=== PATIENT | male | born 1945 | race Caucasian/White ===

== ENCOUNTER 2022-08-03 21:31 | Inpatient (IN) | payer MEDICARE, OTHER ==
[~2022-08-03] VITALS: Ht 182.9 cm; Wt 115.7 kg
[~2022-08-03 21:31] MED LIST: ASPI-543 PO; ATEN50TA PO; CLOP75TA28 PO; GLIP5TAB12 PO; HYDR12.56 PO; LEVO150T10 PO; LISI20TA28 PO; METF-370 PO; SIMV-13 PO
[2022-08-03] MEDS ORDERED: SODIUM CHLORIDE 0.9% 500 ML IV ONE (22:00)
[2022-08-03] MEDS ORDERED: NOREPINEPHRINE 8 MG/250ML KIT 250 ML IV ONE (22:18)
[2022-08-03] MEDS: NOREPINEPHRINE 8 MG/250ML KIT 250 ML IV SCH (22:30)
[2022-08-03] MEDS ORDERED: PIPERACILLIN-TAZO 4.5GM 100 ML IV ONE (23:00)
[2022-08-03] MEDS ORDERED: VANCOMYCIN PER PHARMACY 0 MG IV SCH (23:00)
[2022-08-03 23:04] LABS: Basophils # (auto) 0 10 ^3/uL (0-0.2); Basophils % (auto) 0.3 % (0.0-2.0); Eosinophils # (auto) 0 10 ^3/uL (0-0.8); Eosinophils % (auto) 0.1 % (0.0-7.0); Hematocrit 38.4 % (41.0-53.0); Hemoglobin 12.7 g/dL (13.5-17.5); Lymphocytes % (auto) 7.9 % (10.0-50.0); Mean Corpuscular Hemoglobin 29.7 pg (28.0-32.0); Mean Corpuscular Volume 90.1 fL (80.0-100.0); Monocytes # (auto) 1.7 10 ^3/uL (0-1.3); Monocytes % (auto) 12.8 % (0.0-12.0); Neutrophils # (auto) 10.4 10 ^3/uL (1.6-8.6); Neutrophils % (auto) 78.9 % (37.0-80.0); Nucleated Red Blood Cells % 0.1 %; Red Blood Cells 4.27 10^6/uL (4.5-5.90); Red Cell Distribution Width 16.4 % (11.8-14.3); White Blood Cell 13.2 10^3/uL (4.4-10.8)
[2022-08-03] MEDS ORDERED: VANCOMYCIN 1GM/250ML 250 ML IV ONE (23:15)
[2022-08-03] MEDS ORDERED: DESMOPRESSIN INJECTION 20 MCG in SODIUM CHL 0.9% 50 ML IV ONE (23:15)
[2022-08-03] MEDS ORDERED: PANTOPRAZOLE 40 MG/10 ML VIAL INJ IV ONE (23:15)
[2022-08-03] MEDS ORDERED: SODIUM CHLORIDE 0.9% 1,000 ML IV ONE (23:15)
[2022-08-03 23:16] LABS: INR 1.15 (0.9-1.15)
[2022-08-03 23:25] LABS: Albumin 2.6 g/dL (3.4-5.0); BUN/Creatinine Ratio 14.1 (10.0-20.0); Calcium 8.5 mg/dL (8.5-10.1); Potassium 4.1 mmol/L (3.5-5.1)
[2022-08-03 23:28] LABS: Bilirubin, Total 1.1 mg/dL (0.2-1.0)
[2022-08-04] MEDS ORDERED: IOHEXOL 350 MG/ML 100ML IJ ONE (00:42)
[2022-08-04] MEDS ORDERED: ONDANSETRON HCL 4 MG/2 ML VIAL IV PRN (01:30)
[2022-08-04] MEDS ORDERED: ALBUTEROL SULF 2.5 MG/0.5ML(0.5%) NEB SOLN NEB PRN (01:30)
[2022-08-04] MEDS ORDERED: MORPHINE SULFATE INJ 2 MG/ml SYRG IV PRN ×2 (01:30)
[2022-08-04] MEDS ORDERED: ACETAMINOPHEN 325 MG TAB PO PRN (01:30)
[2022-08-04] MEDS ORDERED: NITROGLYCERIN 0.4 MG SL TAB SL PRN (01:30)
[2022-08-04] MEDS ORDERED: HYDROcodone-ACET 5/325MG TAB PO PRN (01:30)
[2022-08-04 01:33] LABS: Urine Bacteria NONE SEEN /hpf (None Seen); Urine Blood 1+ /uL (Negative); Urine Hyaline Cast FEW /lpf (0 - 2); Urine Mucus FEW (None Seen); Urine Specific Gravity 1.034 (1.001-1.035); Urine WBC 1 /hpf (0 - 3)
[2022-08-04 01:43] VITALS: BP 120/56
[2022-08-04] MEDS ORDERED: VANCOMYCIN 1GM/250ML 250 ML IV ONE ×2 (01:45→21:00)
[2022-08-04] MEDS ORDERED: DEXTROSE (50%) 50ML SYRG IV PRN (01:45)
[2022-08-04] MEDS ORDERED: PANTOPRAZOLE 40 MG/10 ML VIAL INJ IV ONE (02:00)
[2022-08-04] MEDS: DOPamine 1600MCG/ML D5W 250 ML IV SCH ×2 (02:01→23:55)
[2022-08-04] MEDS: SODIUM BICARBONATE 50ML VIAL 50 ML in SOD CHL 0.45% 1,000 ML IV SCH ×2 (02:15→22:56)
[2022-08-04] MEDS ORDERED: SODIUM BICARBONATE 8.4 % INJ 50ML VIAL IV ONE (02:16)
[2022-08-04 05:49] LABS: Basophils # (auto) 0 10 ^3/uL (0-0.2); Basophils % (auto) 0.2 % (0.0-2.0); Eosinophils # (auto) 0 10 ^3/uL (0-0.8); Eosinophils % (auto) 0.1 % (0.0-7.0); Hematocrit 44.2 % (41.0-53.0); Hemoglobin 14.6 g/dL (13.5-17.5); Lymphocytes # (auto) 0.9 10 ^3/uL (0.4-5.4); Lymphocytes % (auto) 6.4 % (10.0-50.0); Mean Corpuscular Hemoglobin 29.6 pg (28.0-32.0); Mean Corpuscular Hgb Conc. 33.1 g/dL (32.0-36.0); Mean Corpuscular Volume 89.4 fL (80.0-100.0); Monocytes # (auto) 1.8 10 ^3/uL (0-1.3); Monocytes % (auto) 12.8 % (0.0-12.0); Neutrophils # (auto) 11.4 10 ^3/uL (1.6-8.6); Neutrophils % (auto) 80.5 % (37.0-80.0); Nucleated Red Blood Cells % 0.3 %; Red Blood Cells 4.95 10^6/uL (4.5-5.90); Red Cell Distribution Width 15.8 % (11.8-14.3); White Blood Cell 14.2 10^3/uL (4.4-10.8)
[2022-08-04] MEDS: ACCU-CHEK COMFORT CURVE STRIP VI SCH ×3 (06:00→18:17)
[2022-08-04 06:03] LABS: INR 1.08 (0.9-1.15); Partial Thromboplastin Time 30.6 sec (24.6-33.4)
[2022-08-04] MEDS: InsuLIN REG 1unit/0.01ml Soln (100units/ml) SC SCH ×3 (06:05→18:19)
[2022-08-04 06:06] LABS: Albumin 3.1 g/dL (3.4-5.0); Calcium 8.7 mg/dL (8.5-10.1)
[2022-08-04 06:13] LABS: BUN/Creatinine Ratio 16.6 (10.0-20.0); Bilirubin, Total 1.5 mg/dL (0.2-1.0); Phosphorus 3.2 mg/dL (2.5-4.90); Total Protein 6.8 g/dL (6.4-8.2)
[2022-08-04] MEDS: PANTOPRAZOLE 40 MG/10 ML VIAL INJ IV SCH ×2 (10:14→22:11)
[2022-08-04] MEDS ORDERED: BENZOCAINE (DENTAL) 20 % SPRAY 60ML MT ONE (13:00)
[2022-08-04 13:31] LABS: Protein, Urine 81.5 mg/dL (0.0-11.9)
[2022-08-04 18:11] LABS: Hematocrit 40.9 % (41.0-53.0); Hemoglobin 13.6 g/dL (13.5-17.5); Mean Corpuscular Hemoglobin 29.4 pg (28.0-32.0); Mean Corpuscular Hgb Conc. 33.3 g/dL (32.0-36.0); Mean Corpuscular Volume 88.4 fL (80.0-100.0); Red Blood Cells 4.62 10^6/uL (4.5-5.90); Red Cell Distribution Width 15.7 % (11.8-14.3); White Blood Cell 11.3 10^3/uL (4.4-10.8)
[2022-08-04 18:30] LABS: Albumin 2.8 g/dL (3.4-5.0); Calcium 8.4 mg/dL (8.5-10.1)
[2022-08-04 18:31] LABS: Basophils % (manual) 0 (0.0-2.0); Blast Cells 0; Metamyelocytes % 0; Myelocytes % 0; Promyelocytes % 0; Reactive Lymphocytes 0
[2022-08-04 18:33] LABS: BUN/Creatinine Ratio 21.1 (10.0-20.0); Bilirubin, Total 1.1 mg/dL (0.2-1.0); Total Protein 6.5 g/dL (6.4-8.2)
[2022-08-04 18:56] LABS: Band Neutrophils % (manual) 13; Eosinophils % (manual) 1 (0-7); Lymphocytes % (manual) 10 (10.0-50.0); Monocytes % (manual) 10 (0-12)
[2022-08-04] MEDS: NOREPINEPHRINE 8 MG/250ML KIT 250 ML IV SCH (22:30)
[2022-08-05] MEDS: InsuLIN REG 1unit/0.01ml Soln (100units/ml) SC SCH ×5 (00:18→23:09)
[2022-08-05] MEDS: ACCU-CHEK COMFORT CURVE STRIP VI SCH ×5 (00:18→23:09)
[2022-08-05] MEDS: PANTOPRAZOLE 40 MG/10 ML VIAL INJ IV SCH ×2 (10:27→21:58)
[2022-08-05 11:14] LABS: Calcium 8.8 mg/dL (8.5-10.1); Potassium 3.7 mmol/L (3.5-5.1)
[2022-08-05 11:16] LABS: BUN/Creatinine Ratio 24.8 (10.0-20.0)
[2022-08-05] MEDS ORDERED: CEFEPIME 1GM/ 50ML 50 ML IV ONE (12:00)
[2022-08-05] MEDS: VANCOMYCIN 1GM/250ML 250 ML IV SCH (12:29)
[2022-08-05 17:45] VITALS: BP 96/60
[2022-08-05] MEDS: SODIUM BICARBONATE 50ML VIAL 50 ML in SOD CHL 0.45% 1,000 ML IV SCH ×2 (19:30→22:49)
[2022-08-05 22:00] VITALS: BP 106/56
[2022-08-05] MEDS: CEFEPIME 1GM/ 50ML 50 ML IV SCH (22:49)
[2022-08-06 05:00] VITALS: BP 110/63
[2022-08-06] MEDS: InsuLIN REG 1unit/0.01ml Soln (100units/ml) SC SCH ×3 (05:46→18:28)
[2022-08-06] MEDS: ACCU-CHEK COMFORT CURVE STRIP VI SCH ×3 (05:46→18:27)
[2022-08-06] MEDS ORDERED: INSU1INJ13 SC (05:54)
[2022-08-06] MEDS ORDERED: METO25TA93 PO (05:54)
[2022-08-06 06:29] LABS: Basophils # (auto) 0 10 ^3/uL (0-0.2); Basophils % (auto) 0.5 % (0.0-2.0); Eosinophils # (auto) 0.1 10 ^3/uL (0-0.8); Eosinophils % (auto) 1.7 % (0.0-7.0); Hematocrit 37.2 % (41.0-53.0); Hemoglobin 12.5 g/dL (13.5-17.5); Lymphocytes % (auto) 13.9 % (10.0-50.0); Mean Corpuscular Hemoglobin 29.6 pg (28.0-32.0); Mean Corpuscular Hgb Conc. 33.6 g/dL (32.0-36.0); Monocytes # (auto) 0.8 10 ^3/uL (0-1.3); Monocytes % (auto) 12.1 % (0.0-12.0); Neutrophils % (auto) 71.8 % (37.0-80.0); Red Blood Cells 4.22 10^6/uL (4.5-5.90); Red Cell Distribution Width 15.7 % (11.8-14.3)
[2022-08-06 06:31] LABS: BUN/Creatinine Ratio 33.9 (10.0-20.0); Calcium 8.9 mg/dL (8.5-10.1); Potassium 3.5 mmol/L (3.5-5.1)
[2022-08-06 08:30] VITALS: BP 100/55
[2022-08-06] MEDS: PANTOPRAZOLE 40 MG/10 ML VIAL INJ IV SCH ×2 (10:16→22:27)
[2022-08-06] MEDS: CEFEPIME 1GM/ 50ML 50 ML IV SCH ×2 (10:16→22:27)
[2022-08-06 12:30] VITALS: BP 112/70
[2022-08-06] MEDS: VANCOMYCIN 1GM/250ML 250 ML IV SCH (12:34)
[2022-08-06] MEDS ORDERED: POTASSIUM CHL 20 Meq TABLET PO ONE (13:15)
[2022-08-06] MEDS: ALBUTEROL SULF 2.5 MG/0.5ML(0.5%) NEB SOLN NEB SCH ×2 (15:09→19:13)
[2022-08-06 16:49] VITALS: BP 140/50
[2022-08-06] MEDS: IPRATROPIUM BROM 0.5 MG/2.5ML INH SOL NEB PRN (19:13)
[2022-08-06 21:46] VITALS: BP 125/79
[2022-08-07] MEDS: ACCU-CHEK COMFORT CURVE STRIP VI SCH ×4 (00:44→17:54)
[2022-08-07] MEDS: InsuLIN REG 1unit/0.01ml Soln (100units/ml) SC SCH ×4 (00:48→17:55)
[2022-08-07] MEDS: IPRATROPIUM BROM 0.5 MG/2.5ML INH SOL NEB PRN ×3 (00:48→11:16)
[2022-08-07] MEDS: ALBUTEROL SULF 2.5 MG/0.5ML(0.5%) NEB SOLN NEB SCH ×4 (00:48→19:36)
[2022-08-07 01:37] VITALS: BP 125/79
[2022-08-07 04:51] VITALS: BP 119/63
[2022-08-07 06:08] LABS: Albumin 2.9 g/dL (3.4-5.0); Calcium 8.8 mg/dL (8.5-10.1); Potassium 3.7 mmol/L (3.5-5.1)
[2022-08-07 06:13] LABS: Bilirubin, Total 0.8 mg/dL (0.2-1.0); Total Protein 5.8 g/dL (6.4-8.2)
[2022-08-07 06:16] LABS: Hematocrit 39.6 % (41.0-53.0); Hemoglobin 13.4 g/dL (13.5-17.5); Mean Corpuscular Hemoglobin 29.8 pg (28.0-32.0); Mean Corpuscular Hgb Conc. 33.9 g/dL (32.0-36.0); Mean Corpuscular Volume 87.8 fL (80.0-100.0); Red Blood Cells 4.51 10^6/uL (4.5-5.90); Red Cell Distribution Width 15.6 % (11.8-14.3); White Blood Cell 7.1 10^3/uL (4.4-10.8)
[2022-08-07 06:30] LABS: Basophils % (manual) 0 (0.0-2.0); Blast Cells 0; Myelocytes % 0; Promyelocytes % 0; Reactive Lymphocytes 0
[2022-08-07 09:00] VITALS: BP 127/65
[2022-08-07] MEDS: PANTOPRAZOLE 40 MG/10 ML VIAL INJ IV SCH ×2 (09:49→21:56)
[2022-08-07] MEDS: CEFEPIME 1GM/ 50ML 50 ML IV SCH ×2 (09:49→21:56)
[2022-08-07 10:22] LABS: Band Neutrophils % (manual) 22; Lymphocytes % (manual) 13 (10.0-50.0)
[2022-08-07 10:23] LABS: Eosinophils % (manual) 1 (0-7); Metamyelocytes % 1; Monocytes % (manual) 13 (0-12)
[2022-08-07 12:30] VITALS: BP 117/58
[2022-08-07 16:32] VITALS: BP 125/63
[2022-08-07 22:00] VITALS: BP 119/60
[2022-08-08] MEDS: ACCU-CHEK COMFORT CURVE STRIP VI SCH ×3 (00:13→11:59)
[2022-08-08] MEDS: InsuLIN REG 1unit/0.01ml Soln (100units/ml) SC SCH ×3 (00:14→11:59)
[2022-08-08] MEDS: ALBUTEROL SULF 2.5 MG/0.5ML(0.5%) NEB SOLN NEB SCH ×3 (00:17→11:26)
[2022-08-08 05:00] VITALS: BP 109/58
[2022-08-08 05:41] LABS: Basophils # (auto) 0.1 10 ^3/uL (0-0.2); Basophils % (auto) 0.9 % (0.0-2.0); Eosinophils # (auto) 0.1 10 ^3/uL (0-0.8); Eosinophils % (auto) 2.2 % (0.0-7.0); Hematocrit 38.1 % (41.0-53.0); Hemoglobin 13.2 g/dL (13.5-17.5); Lymphocytes # (auto) 1.1 10 ^3/uL (0.4-5.4); Lymphocytes % (auto) 16.6 % (10.0-50.0); Mean Corpuscular Hemoglobin 30.5 pg (28.0-32.0); Mean Corpuscular Hgb Conc. 34.7 g/dL (32.0-36.0); Mean Corpuscular Volume 87.7 fL (80.0-100.0); Monocytes % (auto) 15.8 % (0.0-12.0); Neutrophils # (auto) 4.3 10 ^3/uL (1.6-8.6); Neutrophils % (auto) 64.5 % (37.0-80.0); Nucleated Red Blood Cells % 0.2 %; Red Blood Cells 4.35 10^6/uL (4.5-5.90); Red Cell Distribution Width 15.4 % (11.8-14.3); White Blood Cell 6.6 10^3/uL (4.4-10.8)
[2022-08-08 05:58] LABS: BUN/Creatinine Ratio 18.3 (10.0-20.0); Calcium 9.5 mg/dL (8.5-10.1); Potassium 3.9 mmol/L (3.5-5.1)
[2022-08-08] MEDS: IPRATROPIUM BROM 0.5 MG/2.5ML INH SOL NEB PRN ×2 (06:57→11:26)
[2022-08-08 08:37] VITALS: BP 127/51
[2022-08-08] MEDS: PANTOPRAZOLE 40 MG/10 ML VIAL INJ IV SCH (09:27)
[2022-08-08] MEDS: CEFEPIME 1GM/ 50ML 50 ML IV SCH (09:28)
[2022-08-08 12:54] VITALS: BP 115/56
[2022-08-08 13:24] VITALS: BP 127/51
== END 2022-08-08 15:30 | disposition home health service (06) | DRG 871 ==
LOC: EDBD 21:31 → ER 21:31 → TELE 08-04 01:31 → TELE-WESTW 08-05 17:43
PROVIDERS: ADMIT Internal Medicine; ATTEND Internal Medicine
PROC: 30233N1 Transfusion of Nonautologous Red Blood Cells into Peripheral Vein, Percutaneous Approach (ICD-10-PCS; principal; 2022-08-04)
DX: A41.9 Sepsis, unspecified organism (principal); I21.A1 Myocardial infarction type 2; J96.01 Acute respiratory failure with hypoxia; R65.21 Severe sepsis with septic shock; K57.33 Diverticulitis of large intestine without perforation or abscess with bleeding; E44.0 Moderate protein-calorie malnutrition; K55.9 Vascular disorder of intestine, unspecified; N17.9 Acute kidney failure, unspecified; E87.1 Hypo-osmolality and hyponatremia; E87.20 Acidosis, unspecified; Z20.822 Contact with and (suspected) exposure to COVID-19; E11.21 Type 2 diabetes mellitus with diabetic nephropathy; I13.10 Hypertensive heart and chronic kidney disease without heart failure, with stage 1 through stage 4 chronic kidney disease, or unspecified chronic kidney disease; E03.9 Hypothyroidism, unspecified; I25.10 Atherosclerotic heart disease of native coronary artery without angina pectoris; K59.00 Constipation, unspecified; N18.9 Chronic kidney disease, unspecified; E66.9 Obesity, unspecified; E78.5 Hyperlipidemia, unspecified; E88.09 Other disorders of plasma-protein metabolism, not elsewhere classified; Z95.2 Presence of prosthetic heart valve; Z95.1 Presence of aortocoronary bypass graft; Z68.36 Body mass index [BMI] 36.0-36.9, adult; Z79.4 Long term (current) use of insulin; Z85.828 Personal history of other malignant neoplasm of skin; Z86.79 Personal history of other diseases of the circulatory system; Z88.6 Allergy status to analgesic agent; Z88.8 Allergy status to other drugs, medicaments and biological substances
CPT/HCPCS: 36415; 36430; 36556; 36600; 70450; 71045; 71260; 74177; 80048; 80053; 80061; 80202; 81001; 82570; 82805; 82962; 83036; 83605; 83615; 83690; 83735; 83880; 83935; 84100; 84156; 84300; 84443; 84484; 85007; 85025; 85027; 85610; 85730; 86850; 86900; 86901; 86920; 87040; 87426; 87804; 93005; 93306; 94640; 96365; 96375; 99291; C9113; G0378; J1815; J2543

== ENCOUNTER 2022-08-09 21:22 | Inpatient (IN) | payer MEDICARE, OTHER ==
[~2022-08-09] VITALS: Ht 190.5 cm; Wt 119.0 kg
[~2022-08-09 21:22] MED LIST changes: +INSU1INJ13 SC; +METO25TA93 PO
[2022-08-09] MEDS ORDERED: IOHEXOL 300 MG/ML 100ML BOTTLE IJ ONE (22:25)
[2022-08-09 22:44] LABS: Calcium 9.5 mg/dL (8.5-10.1); Magnesium 1.9 mg/dL (1.6-2.6); Potassium 4.4 mmol/L (3.5-5.1)
[2022-08-09 22:47] LABS: BUN/Creatinine Ratio 12.3 (10.0-20.0); Bilirubin, Total 0.8 mg/dL (0.2-1.0); Total Protein 6.6 g/dL (6.4-8.2)
[2022-08-09 22:50] LABS: Basophils # (auto) 0.2 10 ^3/uL (0-0.2); Basophils % (auto) 2.2 % (0.0-2.0); Eosinophils # (auto) 0.1 10 ^3/uL (0-0.8); Eosinophils % (auto) 1.7 % (0.0-7.0); Hematocrit 42.7 % (41.0-53.0); Hemoglobin 14.6 g/dL (13.5-17.5); Lymphocytes # (auto) 0.9 10 ^3/uL (0.4-5.4); Lymphocytes % (auto) 12.8 % (10.0-50.0); Mean Corpuscular Hemoglobin 30.2 pg (28.0-32.0); Mean Corpuscular Hgb Conc. 34.2 g/dL (32.0-36.0); Mean Corpuscular Volume 88.5 fL (80.0-100.0); Monocytes # (auto) 0.5 10 ^3/uL (0-1.3); Monocytes % (auto) 6.6 % (0.0-12.0); Neutrophils # (auto) 5.6 10 ^3/uL (1.6-8.6); Neutrophils % (auto) 76.7 % (37.0-80.0); Nucleated Red Blood Cells % 0.3 %; Red Blood Cells 4.83 10^6/uL (4.5-5.90); Red Cell Distribution Width 15.9 % (11.8-14.3); White Blood Cell 7.3 10^3/uL (4.4-10.8)
[2022-08-09 23:49] LABS: Urine Bacteria NONE SEEN /hpf (None Seen); Urine Blood Negative /uL (Negative); Urine Specific Gravity 1.006 (1.001-1.035); Urine WBC 1 /hpf (0 - 3)
[2022-08-10 00:10] LABS: Alcohol, Urine < 3.0 mg/dL (0-10); Amphetamine Screen, Urine NEGATIVE (NEGATIVE); Barbiturate Scree,Urine NEGATIVE (NEGATIVE); Benzodiazephine Screen, Urine NEGATIVE (NEGATIVE); Cannabinoid Screen, Urine NEGATIVE (NEGATIVE); Cocaine Screen, Urine NEGATIVE (NEGATIVE); Opiate Scree,Urine NEGATIVE (NEGATIVE); Phencyclidine Screen, Urine NEGATIVE (NEGATIVE)
[2022-08-10] MEDS ORDERED: DOCUSATE SOD 100 MG CAP PO PRN (03:45)
[2022-08-10] MEDS ORDERED: hydrALAZINE HCL 20 MG/ML VL IV PRN (03:45)
[2022-08-10] MEDS ORDERED: HYDROcodone-ACET 5/325MG TAB PO PRN (03:45)
[2022-08-10] MEDS ORDERED: DEXTROSE (50%) 50ML SYRG IV PRN (03:45)
[2022-08-10] MEDS ORDERED: ONDANSETRON HCL 4 MG/2 ML VIAL IV PRN (03:45)
[2022-08-10] MEDS ORDERED: ACETAMINOPHEN 325 MG TAB PO PRN (03:45)
[2022-08-10] MEDS: SODIUM CHLORIDE 0.9% 1,000 ML IV SCH ×2 (04:31→20:25)
[2022-08-10] MEDS ORDERED: MORPHINE SULFATE INJ 2 MG/ml SYRG IV PRN (05:00)
[2022-08-10] MEDS ORDERED: NITROGLYCERIN 0.4 MG SL TAB SL PRN (05:00)
[2022-08-10 06:16] LABS: Hematocrit 37.6 % (41.0-53.0); Hemoglobin 12.9 g/dL (13.5-17.5); Mean Corpuscular Hemoglobin 29.8 pg (28.0-32.0); Mean Corpuscular Hgb Conc. 34.2 g/dL (32.0-36.0); Red Blood Cells 4.32 10^6/uL (4.5-5.90); White Blood Cell 6.1 10^3/uL (4.4-10.8)
[2022-08-10 06:28] LABS: Potassium 3.8 mmol/L (3.5-5.1)
[2022-08-10] MEDS: metroNIDAZOLE 500MG/100ML 100 ML IV SCH ×3 (06:33→21:30)
[2022-08-10 06:36] LABS: Band Neutrophils % (manual) 0; Calcium 8.9 mg/dL (8.5-10.1)
[2022-08-10 06:37] LABS: Basophils % (manual) 0 (0.0-2.0); Blast Cells 0; Metamyelocytes % 0; Myelocytes % 0; Promyelocytes % 0; Reactive Lymphocytes 0
[2022-08-10 07:00] LABS: Albumin 2.5 g/dL (3.4-5.0); Bilirubin, Total 0.6 mg/dL (0.2-1.0); Total Protein 5.9 g/dL (6.4-8.2)
[2022-08-10] MEDS: InsuLIN REG 1unit/0.01ml Soln (100units/ml) SC SCH ×3 (07:00→16:49)
[2022-08-10] MEDS ORDERED: MIDODRINE HCL 10 MG TAB PO ONE (07:00)
[2022-08-10] MEDS: LEVOTHYROXINE SODIUM 50 MCG TAB PO SCH (07:02)
[2022-08-10] MEDS: ACCU-CHEK COMFORT CURVE STRIP VI SCH ×4 (07:07→21:30)
[2022-08-10] MEDS ORDERED: CEFTRIAXONE SODIUM 2 GM in D5W 5% 100 ML IV ONE (09:00)
[2022-08-10] MEDS: HEPARIN SODIUM (PORCINE) 5000 UNITS/ML 1ML VIAL SC SCH ×2 (10:00→21:28)
[2022-08-10] MEDS ORDERED: ASPirin 81 mg TAB PO SCH (10:00)
[2022-08-10] MEDS ORDERED: SODIUM CHLORIDE 0.9% 250 ML IV ONE (10:45)
[2022-08-10] MEDS ORDERED: NOREPINEPHRINE 8 MG/250ML KIT 250 ML IV SCH (12:15)
[2022-08-10] MEDS ORDERED: NOREPINEPHRINE 8 MG/250ML KIT 250 ML IV ONE (12:21)
[2022-08-10 13:14] LABS: Eosinophils % (manual) 2 (0-7); Lymphocytes % (manual) 23 (10.0-50.0); Monocytes % (manual) 13 (0-12)
[2022-08-10] MEDS ORDERED: ALBUMIN 25% 100 ML IV ONE (17:15)
[2022-08-10 17:29] VITALS: BP 129/53
[2022-08-10 18:01] VITALS: BP 129/53
[2022-08-10 20:00] VITALS: BP 107/46
[2022-08-10] MEDS ORDERED: ATORVASTATIN 20 MG TAB PO SCH (22:00)
[2022-08-10] MEDS ORDERED: InsuLIN REG 1unit/0.01ml Soln (100units/ml) SC SCH (22:00)
[2022-08-10 23:40] VITALS: BP 107/46
[2022-08-11 05:35] VITALS: BP 132/60
[2022-08-11] MEDS: metroNIDAZOLE 500MG/100ML 100 ML IV SCH (06:41)
[2022-08-11] MEDS: LEVOTHYROXINE SODIUM 50 MCG TAB PO SCH (06:41)
[2022-08-11] MEDS: InsuLIN REG 1unit/0.01ml Soln (100units/ml) SC SCH (06:42)
[2022-08-11] MEDS: ACCU-CHEK COMFORT CURVE STRIP VI SCH (06:44)
[2022-08-11 06:54] LABS: Hematocrit 38.6 % (41.0-53.0); Hemoglobin 12.8 g/dL (13.5-17.5); Mean Corpuscular Hemoglobin 29.4 pg (28.0-32.0); Mean Corpuscular Hgb Conc. 33.1 g/dL (32.0-36.0); Mean Corpuscular Volume 88.8 fL (80.0-100.0); Red Blood Cells 4.35 10^6/uL (4.5-5.90); Red Cell Distribution Width 15.8 % (11.8-14.3); White Blood Cell 6.6 10^3/uL (4.4-10.8)
[2022-08-11 07:05] LABS: Basophils % (manual) 0 (0.0-2.0); Blast Cells 0; Metamyelocytes % 0; Myelocytes % 0; Promyelocytes % 0; Reactive Lymphocytes 0
[2022-08-11 07:30] LABS: BUN/Creatinine Ratio 15.8 (10.0-20.0); Bilirubin, Total 0.6 mg/dL (0.2-1.0); Calcium 8.9 mg/dL (8.5-10.1); Total Protein 6.1 g/dL (6.4-8.2)
[2022-08-11 08:00] VITALS: BP 120/52
[2022-08-11 08:17] LABS: Band Neutrophils % (manual) 5; Eosinophils % (manual) 2 (0-7); Lymphocytes % (manual) 19 (10.0-50.0); Monocytes % (manual) 12 (0-12)
[2022-08-11 09:00] VITALS: BP 120/52
[2022-08-11 09:10] LABS: Folate (Folic Acid) 10.07 ng/mL (5.38-24)
[2022-08-11] MEDS: HEPARIN SODIUM (PORCINE) 5000 UNITS/ML 1ML VIAL SC SCH (09:31)
[2022-08-11 10:40] VITALS: BP 120/52
== END 2022-08-11 10:50 | disposition home or self-care (01) | DRG 641 ==
LOC: ER 21:22 → TELE 08-10 04:57 → TELE-WESTW 08-10 17:22
PROVIDERS: ADMIT Nurse Practitioner Family; ATTEND Internal Medicine
DX: E87.1 Hypo-osmolality and hyponatremia (principal); N39.0 Urinary tract infection, site not specified; K57.32 Diverticulitis of large intestine without perforation or abscess without bleeding; R41.0 Disorientation, unspecified; E03.9 Hypothyroidism, unspecified; E78.5 Hyperlipidemia, unspecified; E11.65 Type 2 diabetes mellitus with hyperglycemia; E78.00 Pure hypercholesterolemia, unspecified; E88.09 Other disorders of plasma-protein metabolism, not elsewhere classified; I11.0 Hypertensive heart disease with heart failure; I50.9 Heart failure, unspecified; I95.9 Hypotension, unspecified; Z88.5 Allergy status to narcotic agent; Z88.8 Allergy status to other drugs, medicaments and biological substances; Z79.899 Other long term (current) drug therapy; Z79.82 Long term (current) use of aspirin; Z79.84 Long term (current) use of oral hypoglycemic drugs; Z87.891 Personal history of nicotine dependence; Z95.2 Presence of prosthetic heart valve; Z79.4 Long term (current) use of insulin; Z82.49 Family history of ischemic heart disease and other diseases of the circulatory system; Z88.6 Allergy status to analgesic agent
CPT/HCPCS: 36415; 70450; 71260; 74177; 80053; 80307; 81001; 82140; 82607; 82746; 82962; 83605; 83735; 84443; 84484; 85007; 85025; 85027; 96361; 96365; G0378; J0696; J1815; J3490; J7060; P9047

== ENCOUNTER 2023-10-06 09:01 | Inpatient (IN) | payer MEDICARE, OTHER ==
[~2023-10-06] VITALS: Ht 188 cm; Wt 120.7 kg
[~2023-10-06 09:01] MED LIST changes: -GLIP5TAB12 PO; +GLIP5TAB21 PO; -HYDR12.56 PO; +HYDR12.59 PO; -LISI20TA28 PO; +LISI20TA56 PO; -SIMV-13 PO; +SIMV40TA18 PO
[2023-10-06 10:23] LABS: Basophils # (auto) 0.1 10 ^3/uL (0-0.2); Basophils % (auto) 0.6 % (0.0-2.0); Eosinophils # (auto) 0.2 10 ^3/uL (0-0.8); Eosinophils % (auto) 1.9 % (0.0-7.0); Hematocrit 41.8 % (41.0-53.0); Hemoglobin 14.4 g/dL (13.5-17.5); Lymphocytes # (auto) 1.6 10 ^3/uL (0.4-5.4); Lymphocytes % (auto) 16.3 % (10.0-50.0); Mean Corpuscular Hemoglobin 30.4 pg (28.0-32.0); Mean Corpuscular Hgb Conc. 34.5 g/dL (32.0-36.0); Mean Corpuscular Volume 88.1 fL (80.0-100.0); Monocytes # (auto) 1.2 10 ^3/uL (0-1.3); Neutrophils # (auto) 6.7 10 ^3/uL (1.6-8.6); Neutrophils % (auto) 69.2 % (37.0-80.0); Nucleated Red Blood Cells % 0.1 %; Red Blood Cells 4.75 10^6/uL (4.5-5.90); Red Cell Distribution Width 15.8 % (11.8-14.3); White Blood Cell 9.7 10^3/uL (4.4-10.8)
[2023-10-06 10:33] LABS: Alanine Aminotransferase 21 U/L (7-40); Albumin 4.5 g/dL (3.2-4.8); Alkaline Phosphatase 78 U/L (46-116); Anion Gap 6 (5-15); Aspartate Aminotransferase 19 U/L (13-40); BUN/Creatinine Ratio 12.8 (10.0-20.0); Blood Urea Nitrogen 14 mg/dL (9-23); Calcium 9.8 mg/dL (8.5-10.1); Carbon Dioxide 26 mmol/L (20-30); Chloride 105 mmol/L (98-107); Glucose 146 mg/dL (74-106); Potassium 4.2 mmol/L (3.5-5.1); Sodium 137 mmol/L (136-145); Total Protein 6.8 g/dL (5.7-8.2)
[2023-10-06 11:07] VITALS: PULSE 80
[2023-10-06 11:10] LABS: Lipase 28 U/L (12-53)
[2023-10-06] MEDS: FUROSEMIDE 20 MG/2 ML VIAL IV ONE (13:06)
[2023-10-06 13:55] LABS: Urine Bacteria None Seen /hpf (None Seen)
[2023-10-06 14:22] LABS: Urine Blood Negative /uL (Negative); Urine Clarity Clear (Clear); Urine Color Yellow (Yellow); Urine Hyaline Cast FEW /lpf (0 - 2); Urine Mucus FEW (None Seen); Urine Protein, UAD Negative (Negative); Urine Specific Gravity 1.019 (1.001-1.035); Urine Urobilinogen Normal (Negative); Urine WBC 1 /hpf (0 - 3); Urine pH 5.5 (5.0-9.0)
[2023-10-06] MEDS ORDERED: NITROGLYCERIN 0.4 MG SL TAB SL PRN (14:30)
[2023-10-06] MEDS ORDERED: MORPHINE SULFATE INJ 2 MG/ml SYRG IV PRN (14:30)
[2023-10-06] MEDS ORDERED: ACETAMINOPHEN 325 MG TAB PO PRN (14:30)
[2023-10-06] MEDS ORDERED: ONDANSETRON HCL 4 MG/2 ML VIAL IV PRN (14:30)
[2023-10-06] MEDS ORDERED: SODIUM CHLORIDE 0.9% 1,000 ML IV SCH (14:30)
[2023-10-06] MEDS ORDERED: DEXTROSE (50%) 50ML SYRG IV PRN (14:45)
[2023-10-06] MEDS: PANTOPRAZOLE 40 MG/10 ML VIAL INJ IV ONE (16:57)
[2023-10-06] MEDS: InsuLIN REG 1unit/0.01ml Soln (100units/ml) SC SCH (17:00)
[2023-10-06] MEDS: HYDROcodone-ACET 5/325MG TAB PO PRN (17:02)
[2023-10-06] MEDS: ACCU-CHEK COMFORT CURVE STRIP VI SCH (17:05)
[2023-10-06] MEDS ORDERED: hydrALAZINE HCL 20 MG/ML VL IV PRN (17:15)
[2023-10-06 18:45] VITALS: BP 90/64; PULSE 88; RESP 16; TEMP 98.2; O2SAT 90
[2023-10-06 18:54] VITALS: PULSE 85; RESP 18; O2SAT 93
[2023-10-06] MEDS ORDERED: LEVO175T4 PO (19:11)
[2023-10-06] MEDS ORDERED: LOSA-534 PO (19:12)
[2023-10-06] MEDS ORDERED: CITA-77 PO (19:12)
[2023-10-06] MEDS ORDERED: HYDR25TA5 PO (19:13)
[2023-10-06] MEDS ORDERED: TIRZ7.5I SC (19:15)
[2023-10-06 19:30] VITALS: PULSE 78; PULSE 85; RESP 18; O2SAT 93
[2023-10-06] MEDS: MORPHINE SULFATE INJ 2 MG/ml SYRG IV PRN (20:27)
[2023-10-06] MEDS: ATORVASTATIN 20 MG TAB PO SCH (20:58)
[2023-10-06 21:00] VITALS: BP 132/61; PULSE 85; RESP 18; TEMP 98.1; O2SAT 95
[2023-10-07] VITALS (8 sets, daily range): BP systolic 113–153; BP diastolic 36–69; PULSE 66–84; RESP 17–20; TEMP 97.4–98.5; O2SAT 92–95
[2023-10-07 06:48] LABS: Basophils # (auto) 0 10 ^3/uL (0-0.2); Basophils % (auto) 0.4 % (0.0-2.0); Eosinophils # (auto) 0.1 10 ^3/uL (0-0.8); Eosinophils % (auto) 1.5 % (0.0-7.0); Hematocrit 38.8 % (41.0-53.0); Hemoglobin 13.2 g/dL (13.5-17.5); Lymphocytes # (auto) 1.3 10 ^3/uL (0.4-5.4); Lymphocytes % (auto) 15.5 % (10.0-50.0); Mean Corpuscular Hemoglobin 30.3 pg (28.0-32.0); Mean Corpuscular Hgb Conc. 33.9 g/dL (32.0-36.0); Mean Corpuscular Volume 89.3 fL (80.0-100.0); Monocytes # (auto) 1.4 10 ^3/uL (0-1.3); Monocytes % (auto) 16.9 % (0.0-12.0); Neutrophils # (auto) 5.6 10 ^3/uL (1.6-8.6); Neutrophils % (auto) 65.7 % (37.0-80.0); Nucleated Red Blood Cells % 0.1 %; Red Blood Cells 4.35 10^6/uL (4.5-5.90); Red Cell Distribution Width 15.6 % (11.8-14.3); White Blood Cell 8.5 10^3/uL (4.4-10.8)
[2023-10-07 07:09] LABS: Alanine Aminotransferase 16 U/L (7-40); Alkaline Phosphatase 67 U/L (46-116); Anion Gap 6 (5-15); BUN/Creatinine Ratio 17.9 (10.0-20.0); Blood Urea Nitrogen 19 mg/dL (9-23); Calcium 9.4 mg/dL (8.7-10.4); Carbon Dioxide 24 mmol/L (20-30); Chloride 104 mmol/L (98-107); Glucose 167 mg/dL (74-106); Potassium 3.9 mmol/L (3.5-5.1); Sodium 134 mmol/L (136-145)
[2023-10-07 07:10] LABS: Albumin 4.1 g/dL (3.2-4.8); Aspartate Aminotransferase 15 U/L (13-40)
[2023-10-07 07:11] LABS: Bilirubin, Total 1.5 mg/dL (0.2-1.0); Total Protein 6.5 g/dL (5.7-8.2)
[2023-10-07] MEDS: PANTOPRAZOLE 40 MG/10 ML VIAL INJ IV SCH (08:49)
[2023-10-07] MEDS: ENOXAPARIN SOD 40 MG/0.4 ML SYRINGE SC SCH (08:50)
[2023-10-07] MEDS: CLOPIDOGREL BISULFATE 75 MG TAB PO SCH (08:51)
[2023-10-07] MEDS: LOSARTAN POTASSIUM 25 MG TAB PO SCH (08:51)
[2023-10-07] MEDS ORDERED: OMEP1CAP70 PO (17:32)
[2023-10-08 01:00] VITALS: BP 117/47; PULSE 84; RESP 20; TEMP 98; O2SAT 90
[2023-10-08 05:00] VITALS: BP 116/61; PULSE 74; RESP 20; TEMP 97.4; O2SAT 93
[2023-10-08 08:00] VITALS: PULSE 55
[2023-10-08 08:35] VITALS: BP 123/64; PULSE 62; RESP 16; TEMP 97.5; O2SAT 96
[2023-10-08] MEDS ORDERED: HYDR2TAB58 PO (10:59)
[2023-10-08 12:30] VITALS: BP 124/56; PULSE 62; RESP 16; TEMP 97.5; O2SAT 95
[2023-10-08 13:33] VITALS: BP 125/48
== END 2023-10-08 15:43 | disposition home or self-care (01) | DRG 206 ==
LOC: EDBD 09:01 → ER 09:01 → TELE 14:33 → WEST WING 14:43
PROVIDERS: ADMIT Registered Nurse; ATTEND Family Medicine
DX: M94.0 Chondrocostal junction syndrome [Tietze] (principal); K21.9 Gastro-esophageal reflux disease without esophagitis; I10 Essential (primary) hypertension; E11.9 Type 2 diabetes mellitus without complications; E78.5 Hyperlipidemia, unspecified; E03.9 Hypothyroidism, unspecified; E66.9 Obesity, unspecified; I44.0 Atrioventricular block, first degree; K74.60 Unspecified cirrhosis of liver; Z82.49 Family history of ischemic heart disease and other diseases of the circulatory system; Z95.2 Presence of prosthetic heart valve; Z79.4 Long term (current) use of insulin; Z88.6 Allergy status to analgesic agent; Z85.828 Personal history of other malignant neoplasm of skin; Z68.34 Body mass index [BMI] 34.0-34.9, adult
CPT/HCPCS: 36415; 71045; 74176; 80053; 81001; 82962; 83690; 83880; 84484; 85025; 93005; 93306; 96374; 96375; G0378; J1815

== ENCOUNTER 2025-03-01 18:52 | Emergency (ER) | payer MEDICARE, OTHER ==
[~2025-03-01] VITALS: Ht 185.4 cm; Wt 127.0 kg
[~2025-03-01 18:52] MED LIST changes: -ATEN50TA PO; +CITA-77 PO; -CLOP75TA28 PO; -HYDR12.59 PO; +HYDR25TA5 PO; +HYDR2TAB58 PO; -LEVO150T10 PO; +LEVO175T4 PO; -LISI20TA56 PO; +LOSA-534 PO; -METF-370 PO; +OMEP1CAP70 PO; +TIRZ7.5I SC
--- NOTE | 2025-03-01 19:23 | ECG ---
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
--- NOTE | 2025-03-01 19:29 | ED.PDOC ---
History of Present Illness HPI Comments 79 year old male with PMHx HTN, HLD, DM, presents to the ED with a chief complaint of generalized weakness onset today. Per EMS, patient's daughter called 911 due to patient experiencing generalized weakness with slurred speech. Upon EMS arrival, patient BG was 80. Patient states symptoms have improved, was trying to ask daughter for orange juice, was not able to say it, currently state she has no complaints. Denies LOC, head injury, dizziness, blurred speech, chest pain, dysuria, hematuria. No other symptoms or modifying factors present at this time. Chief Complaint: General Weakness Time Seen by MD: 19:20 Primary Care Provider: SILVESTRE Saunders Notes: Medications, Allergies Allergies: Coded Allergies: Ibuprofen (Verified Allergy, Severe, 08/03/22) Protamine (Verified Allergy, Severe, 10/02/15) Uncoded Allergies: white tape (Adverse Reaction, Unknown, 08/04/22) Home Meds Active Scripts Hydromorphone Hcl (Dilaudid) 2 Mg Tab, 0.5 TAB PO TID PRN, #20 TAB Prov:KWAME JARA MD 10/08/23 Reported Medications Omeprazole (Omeprazole Dr) 20 Mg Cap, 1 TAB PO DAILY 10/07/23 Tirzepatide (Mounjaro) 7.5 Mg/0.5 Ml Inj, SC 10/06/23 Hctz (Hydrochlorothiazide) 25 Mg Tab, 1 TAB PO DAILY 10/06/23 Citalopram Hydrobromide (Citalopram Hydrobromide) 20 Mg Tab, 1 TAB PO DAILY 10/06/23 Losartan Potassium (Losartan Potassium) 50 Mg Tab, 1 TAB PO BID 10/06/23 Levothyroxine Sodium (Levothyroxine Sodium) 175 Mcg Tab, 1 TAB PO DAILY 10/06/23 Insulin Degludec (Tresiba Flextouch) 200 Unit/Ml Inj, SC 08/06/22 Metoprolol Succinate (Metoprolol Succinate Er) 25 Mg Tab, 1 TAB PO DAILY 08/06/22 Aspirin (Aspir-Low) 81 Mg Tab, 81 MG PO DAILY for 30 Days, MG 10/02/15 Simvastatin (Simvastatin) 40 Mg Tab, 40 MG PO DAILY for 30 Days 10/02/15 Glipizide (Glipizide) 5 Mg Tab, 5 MG PO BID for 30 Days, MG 10/02/15 Information Source: Patient, Emergency Med Personnel Mode of Arrival: EMS Severity: Moderate Timing: Hours Duration: Since onset Prehospital treatment: None Past Medical History PAST MEDICAL HISTORY: Arthritis, Cancer, DM, High Lipids, HTN Surgical History: Denies all surgeries Family History Family History: Reviewed,noncontributory to illness Social History Smoker: Non-Smoker Alcohol: Denies ETOH Use Drugs: Denies Drug Use Lives In: Home Constitutional: reports: weakness; denies: chills, diaphoresis, fatigue, fever, malaise, sweats, others EENTM: denies: blurred vision, double vision, ear bleeding, ear discharge, ear drainage, ear pain, ear ringing, eye pain, eye redness, hearing loss, mouth pain, mouth swelling, nasal discharge, nose bleeding, nose congestion, nose pain, photophobia, tearing, throat pain, throat swelling, voice changes, others Respiratory: denies: cough, hemoptysis, orthopnea, SOB at rest, shortness of breath, SOB with excertion, stridor, wheezing, others Cardiovascular: denies: chest pain, dizzy spells, diaphoresis, Dyspnea on exertion, edema, irregular heart beat, left arm pain, lightheadedness, palpitations, PND, syncope, others Gastrointestinal: denies: abdomen distended, abdominal pain, blood streaked bowels, constipated, diarrhea, dysphagia, difficulty swallowing, hematemesis, melena, nausea, poor appetite, poor fluid intake, rectal bleeding, rectal pain, vomiting, others Genitourinary: denies: burning, dysuria, flank pain, frequency, hematuria, incontinence, penile discharge, penile sore, pain, testicle pain, testicle swelling, urgency, others Neurological: reports: speech problems, weakness; denies: dizziness, fainting, headache, left sided numbness, left sided weakness, numbness, paresthesia, pre- existing deficit, right sided numbness, right sided weakness, seizure, tingling, tremors, others Musculoskeletal: denies: back pain, gout, joint pain, joint swelling, muscle pain, muscle stiffness, neck pain, others Integumetry: denies: bruises, change in color, change in hair/nails, dryness, laceration, lesions, lumps, rash, wounds, others Allergic/Immunocompromised: denies: Difficulty Healing, Frequent Infections, Hives, Itching, others Hematologic/Lymphatic: denies: anemia, blood clots, easy bleeding, easy bruising, swollen glands, others Endocrine: denies: excessive hunger, excessive sweating, excessive thirst, excessive urination, flushing, intolerance to cold, intolerance to heat, unexplained weight gain, unexplained weight loss, others Psychiatric: denies: anxiety, bipolar disorder, depression, hopeless, panic disorder, schizophrenia, sleepless, suicidal, others All Other Systems: Reviewed and Negative Physical Exam General Appearance: No Apparent Distress, Normal HEENT: Normal ENT Inspection, Pharynx Normal, TMs Normal Neck: Full Range of Motion, Non-Tender, Normal, Normal Inspection Respiratory: Chest Non-Tender, Lungs Clear, No Accessory Muscle Use, No Respiratory Distress, Normal Breath Sounds Cardiovascular: No Edema, No JVD, No Murmur, No Gallop, Normal Peripheral Pulses, Regular Rate/Rhythm Breast Exam: Deferred Gastrointestinal: No Organomegaly, Non Tender, No Pulsatile Mass, Normal Bowel Sounds, Soft Genitalia: Deferred Pelvic: Deferred Rectal: Deferred Extremities: No calf tenderness, Normal capillary refill, Normal inspection, Normal range of motion, Non-tender, No pedal edema Musculoskeletal : Apperance: Normal Neurologic: Alert, shoe polisher II-XII nml as Tested, No Motor Deficits, Normal Affect, Normal Mood, No Sensory Deficits, Other (NIH Stroke Scale/Score (NIHSS) from [email or web address] on 03/02/2025) Cerebellar Function: Normal Reflexes: Normal Skin: Dry, Normal Color, Warm Lymphatic: No Adenopathy Was a procedure done? Was a procedure done?: No Differential Dx Considerations may include: DDX includes but not limited to: dehydration, sepsis, coronary ischemia, stroke, electrolyte abnormality and others X-Ray, Labs, Meds, VS Vital Signs Date Time Temp Pulse Resp B/P (MAP) Pulse Ox O2 Delivery O2 Flow Rate FiO2 03/02/25 00:52 97.9 81 16 159/88 (111) 95 97.9 03/01/25 23:00 Room Air* 0 21 03/01/25 19:03 65 03/01/25 19:02 97.6 74 18 174/82 97 97.6 Lab Test 03/01/25 20:17 03/01/25 19:19 Range/Units Troponin I High Sensitivity 12 12 </=54 ng/L White Blood Count 6.6 4.4-10.8 10^3/uL Red Blood Count 4.96 4.5-5.90 10^6/uL Hemoglobin 14.7 13.5-17.5 g/dL Hematocrit 43.3 41.0-53.0 % Mean Corpuscular Volume 87.2 80.0-100.0 fL Mean Corpuscular Hemoglobin 29.6 28.0-32.0 pg Mean Corpuscular Hemoglobin Concent 34.0 32.0-36.0 g/dL Red Cell Distribution Width 16.8 H 11.8-14.3 % Platelet Count 126 L 140-450 10^3/uL Mean Platelet Volume 7.8 6.9-10.8 fL Neutrophils (%) (Auto) 71.5 37.0-80.0 % Lymphocytes (%) (Auto) 15.7 10.0-50.0 % Monocytes (%) (Auto) 10.5 0.0-12.0 % Eosinophils (%) (Auto) 1.2 0.0-7.0 % Basophils (%) (Auto) 1.1 0.0-2.0 % Neutrophils # (Auto) 4.8 1.6-8.6 10 ^3/uL Lymphocytes # (Auto) 1.0 0.4-5.4 10 ^3/uL Monocytes # (Auto) 0.7 0-1.3 10 ^3/uL Eosinophils # (Auto) 0.1 0-0.8 10 ^3/uL Basophils # (Auto) 0.1 0-0.2 10 ^3/uL Nucleated Red Blood Cells 0.2 % Prothrombin Time 10.9 9.3-11.8 sec Prothrombin Time INR 1.03 0.9-1.15 Activated Partial Thromboplast Time 26.3 24.5-34.5 SEC Sodium Level 142 136-145 mmol/L Potassium Level 3.9 3.5-5.1 mmol/L Chloride Level 105 98-107 mmol/L Carbon Dioxide Level 27 20-31 mmol/L Anion Gap 10 5-15 Blood Urea Nitrogen 19 9-23 mg/dL Creatinine 1.01 0.700-1.30 mg/dL Glomerular Filtration Rate Calc 76 >90 mL/min BUN/Creatinine Ratio 18.8 10.0-20.0 Serum Glucose 106 74-106 mg/dL Calcium Level 10.3 8.7-10.4 mg/dL Magnesium Level 1.6 1.6-2.6 mg/dL Total Bilirubin 0.8 0.2-1.0 mg/dL Aspartate Amino Transferase (AST) 28 13-40 U/L Alanine Aminotransferase (ALT) 25 7-40 U/L Alkaline Phosphatase 90 46-116 U/L B-Type Natriuretic Peptide 39.98 0-100 pg/mL Total Protein 7.5 5.7-8.2 g/dL Albumin 4.8 3.2-4.8 g/dL [place] [address] Ph: [phone] DIAGNOSTIC IMAGING Diagnostic Imaging Report : [id number] Signed PATIENT: JESS CRAIG EACCT: [id number] UNIT: [id number] : 1945 LOC: ER ROOM / BED: / AGE / SEX: 79 / M ADM STATUS: REG ER SERVICE 11 ORDERING PHYSICIAN: ANGELES MINOR MD PROCEDURE(s): [place] - ANGIO HEAD/Neck REASON: TIA ORDER NUMBER(s): [id number], ACCESSION NUMBER(s): [id number] INDICATION: TIA COMPARISON: None TECHNIQUE:CTA head and neck with intravenous contrast. 3D/MIP image postprocessing was performed and images were used for interpretation and reporting. Radiation Dose Information: CT Dose: CTDI volume is 54.34 mGy. Dose-length product is 3.16 mGy*cm FINDINGS: CTA neck: Normal 3-vessel origin left-sided aortic arch. Mild atherosclerotic calcification of the aortic arch and bilateral subclavian arteries without hemodynamically significant stenosis. Fnzr-cq-yvlojlvr atherosclerotic calcification of the left carotid bulb, pr oximal ICA and proximal ECA without hemodynamically significant stenosis. Mild atherosclerotic calcification of the left common carotid artery. streak artifact from dental amalgam limiting evaluation of the mid to distal left cervical ICA at the level of C1-C2. Otherwise, the left common carotid artery and left cervical ICA are unremarkable. Mild atherosclerotic calcification of the right common carotid artery with moderate to Heavy atherosclerotic calcification of the right carotid buld, and origin of the right ECA. Heavy atherosclerotic calcification of the Proximal right cervical ICA causing focal Near-complete occlusion with flow noted distally within the right cervical ICA. Mild atherosclerotic calcification at the origin of the left vertebral artery. Otherwise, the vertebral arteries are unremarkable and codominant. CTA head: Bilateral ACAS, anterior communicating artery and bilateral MCAs are unremarkable. Pdcp-wv-acnhbgew atherosclerotic calcification of the right cavernous and supraclinoid ICA with moderate atherosclerotic calcification of the left cavernous and supraclinoid ICA. Otherwise, bilateral intracranial ICAs are unremarkable. origin of the right GLOBAL SAFETY OFFICER with hypoplasia of the right P1 segment. Otherwise, bilateral market research specialist, bilateral superior cerebellar arteries and basilar artery are unremarkable. Short segmental moderate atherosclerotic calcification of the right intracranial vertebral artery with Ymll-lg-kxzoxywp atherosclerotic calcification of the proximal left intracranial vertebral artery. The dural venous sinuses opacify normally. No abnormal intracranial enhancement. The thyroid gland is unremarkable. The lung apices are clear. Anterior cervical fixation hardware is noted. Polypoid mucoperiosteal thickening of the maxillary sinuses. IMPRESSION: Heavy atherosclerotic calcification of the Proximal right cervical ICA causing focal Near-complete occlusion with flow noted distally within the right cervical ICA. Moderate to Heavy atherosclerotic calcification of the right carotid buld, and origin of the right ECA. Moderate atherosclerotic calcification of the left cavernous and supraclinoid ICA. Short segmental moderate atherosclerotic calcification of the right intracranial vertebral artery with Cfkh-ty-[id number] atherosclerotic calcification of the proximal left intracranial vertebral artery. ATED BY: DEIRDRE QUINONEZ DO DICTATED DATE/TIME: 03/01/252145 SIGNED BY: DEIRDRE QUINONEZ DO SIGNED DATE/TIME: 03/01/252145 CC: [place] [address] Ph: [phone] DIAGNOSTIC IMAGING Diagnostic Imaging Report : [id number] Signed PATIENT: JESS CRAIG EACCT: [id number] UNIT: [id number] : 1945 LOC: ER ROOM / BED: / AGE / SEX: 79 / M ADM STATUS: REG ER SERVICE 11 ORDERING PHYSICIAN: ANGELES MINOR MD PROCEDURE(s): CTH - STROKE CTH REASON: TIA / expressive aphasia ORDER NUMBER(s): [id number], ACCESSION NUMBER(s): [id number] EXAM: CT STROKE CTH INDICATION: TIA / expressive aphasia TECHNIQUE: CT of the head without intravenous contrast. Radiation Dose Information: CT Dose: CTDI volume is 65.83 mGy. Dose-length product is 1186.73 mGy*cm The dose indicators for CT are the volume Computed Tomography (CT) Dose Index (CTDIvol) and the Dose Length Product (DLP), and are measured in units of mGy and mGy-cm, respectively. These indicators are not patient dose, but values generated from the CT scanner acquisition factors. The report includes radiation exposure data for exposures received during this examination. COMPARISON: CT HEAD WITHOUT CONTRAST on DOS: 08/09/22, CT HEAD WITHOUT CONTRAST on DOS: 08/03/22 FINDINGS: There is no evidence of acute intracranial hemorrhage, extra-axial collection, mass effect, midline shift, herniation or hydrocephalus. The ventricles, sulci and cisterns are age appropriate. The sánchez-white differentiation is intact. Patchy periventricular and subcortical white matter hypoattenuation is nonspecific but may be related to small vessel ischemic disease. Moderate generalized cerebral volume loss. The visualized paranasal sinuses and mastoid air cells are clear. The surrounding soft tissues and osseous structures are unremarkable. IMPRESSION: No acute intracranial abnormality. ATED BY: CARLOS SORTO MD DICTATED DATE/TIME: 03/01/252001 SIGNED BY: CARLOS SORTO MD SIGNED DATE/TIME: 03/01/252001 CC: [place] [address] Ph: [phone] DIAGNOSTIC IMAGING Diagnostic Imaging Report : [id number] Signed PATIENT: JESS CRAIG EACCT: [id number] UNIT: [id number] : 1945 LOC: ER ROOM / BED: / AGE / SEX: 79 / M ADM STATUS: REG ER SERVICE 11 ORDERING PHYSICIAN: ANGELES MINOR MD PROCEDURE(s): CXR1 - CHEST XRAY 1 VIEW REASON: SOB ORDER NUMBER(s): [id number], ACCESSION NUMBER(s): [id number] CHEST RADIOGRAPH Indication: SOB Technique: Single frontal view of the chest was obtained Comparison: XY CHEST PORTABLE on DOS: 10/06/23, XY CHEST PORTABLE on DOS: 08/05/22, XY CHEST XRAY 1 VIEW on DOS: 08/04/22 FINDINGS: Lines and Tubes: None Lungs: Mildly prominent bronchovascular markings in the lung bases. Be due to decreased inspiratory effort. Pleura: No effusion. No pneumothorax. Cardiomediastinal contours: Unremarkable Bones: Anterior fusion lower cervical spine IMPRESSION: 1. Decreased inspiratory effort when compared to 08/05/2022. ATED BY: NORMA BARTLETT Jr., DO DICTATED DATE/TIME: 03/01/251957 SIGNED BY: NORMA BARTLETT Jr., DO SIGNED DATE/TIME: 03/01/251957 CC: Time of 1ST Reevaluation: 19:50 Reevaluation 1ST: Unchanged Patient Education/Counseling: Diagnosis, Treatment, Prognosis Family Education/Counseling: No Family Present SEPSIS Sepsis Screen Date sepsis recognized/suspect: Mar 01, 2025 Time Sepsis recognized/suspect: 1901 Recent Procedure: No On Antibiotic Therapy: No Respiratory Rate >20: No Heart Rate >90: No Temp<36 C (96.8 F) or >38.3 C: No SBP <90 or MAP <65 mmHG: No New Acute Mental Status Change: No Is the patient on CPAP, BIPAP,: No Physician Orders Ct Head Cva (03/01/25 19:12) Angio Head/Neck (03/01/25 19:12) Chest Xray 1 View (03/01/25 19:12) Imaging Transfer Request (03/01/25 22:45) Vital Signs Date Time Temp Pulse Resp B/P (MAP) Pulse Ox O2 Delivery O2 Flow Rate FiO2 03/02/25 00:52 97.9 81 16 159/88 (111) 95 97.9 03/01/25 23:00 Room Air* 0 21 03/01/25 19:03 65 03/01/25 19:02 97.6 74 18 174/82 97 97.6 Laboratory Tests Test 03/01/25 19:19 White Blood Count 6.6 10^3/uL (4.4-10.8) Departure 1 Departure Time of Disposition: 21:50 Impression: Primary Impression: Cerebrovascular accident involving large vessel Disposition: 02 SHORT TERM HOSPITAL Condition: Critical Discharged With: Self Comments patient with expressive aphasia at home, now resolved. Right ICA occlusion noted on CTA. patient given aspirin, no focal deficits at this time, TPA contraindicated due to lack of focal deficits. I contacted [facility] and they accept patient for higher level of care transfer for Neuro IR Critical Care Note Critical Care Time?: No Stability Stability form required: No Heart Score Heart Score: Heart Score Response (Comments) Value History N/A 0 EKG N/A 0 Age N/A 0 Risk Factors N/A 0 Troponin N/A 0 Total 0 I personally scribed for ANGELES MINOR MD ([email or web address]) on 03/01/25 at 19:29. Electronically submitted by Mely Correia ([email or web address]). I personally scribed for ANGELES MINOR MD ([email or web address]) on 03/01/25 at 22:19. Electronically submitted by Mely Correia ([email or web address]). ANGELES MINOR MD Mar 01, 2025 19:29
[2025-03-01 19:35] LABS: Hematocrit 43.3 % (41.0-53.0); Hemoglobin 14.7 g/dL (13.5-17.5); Mean Corpuscular Hemoglobin 29.6 pg (28.0-32.0); Mean Corpuscular Volume 87.2 fL (80.0-100.0); Nucleated Red Blood Cells % 0.2 %
[2025-03-01 19:46] LABS: INR 1.03 (0.9-1.15); Partial Thromboplastin Time 26.3 SEC (24.5-34.5); Prothrombin Time 10.9 sec (9.3-11.8)
[2025-03-01 19:49] LABS: Alanine Aminotransferase 25 U/L (7-40); Albumin 4.8 g/dL (3.2-4.8); Alkaline Phosphatase 90 U/L (46-116); Anion Gap 10 (5-15); BUN/Creatinine Ratio 18.8 (10.0-20.0); Blood Urea Nitrogen 19 mg/dL (9-23); Calcium 10.3 mg/dL (8.7-10.4); Carbon Dioxide 27 mmol/L (20-31); Chloride 105 mmol/L (98-107); Potassium 3.9 mmol/L (3.5-5.1); Sodium 142 mmol/L (136-145); Total Protein 7.5 g/dL (5.7-8.2)
[2025-03-01 19:50] LABS: Bilirubin, Total 0.8 mg/dL (0.2-1.0)
[2025-03-01 19:54] LABS: Glucose 106 mg/dL (74-106); Magnesium 1.6 mg/dL (1.6-2.6)
--- NOTE | 2025-03-01 20:01 | DVH ---
CHEST RADIOGRAPH Indication: SOB Technique: Single frontal view of the chest was obtained Comparison: XY CHEST PORTABLE on DOS: 10/06/23, XY CHEST PORTABLE on DOS: 08/05/22, XY CHEST XRAY 1 VIEW on DOS: 08/04/22 FINDINGS: Lines and Tubes: None Lungs: Mildly prominent bronchovascular markings in the lung bases. Be due to decreased inspiratory effort. Pleura: No effusion. No pneumothorax. Cardiomediastinal contours: Unremarkable Bones: Anterior fusion lower cervical spine IMPRESSION: 1. Decreased inspiratory effort when compared to 08/05/2022.
--- NOTE | 2025-03-01 20:04 | DVH ---
EXAM: CT STROKE CTH INDICATION: TIA / expressive aphasia TECHNIQUE: CT of the head without intravenous contrast. Radiation Dose Information: CT Dose: CTDI volume is 65.83 mGy. Dose-length product is 1186.73 mGy*cm The dose indicators for CT are the volume Computed Tomography (CT) Dose Index (CTDIvol) and the Dose Length Product (DLP), and are measured in units of mGy and mGy-cm, respectively. These indicators are not patient dose, but values generated from the CT scanner acquisition factors. The report includes radiation exposure data for exposures received during this examination. COMPARISON: CT HEAD WITHOUT CONTRAST on DOS: 08/09/22, CT HEAD WITHOUT CONTRAST on DOS: 08/03/22 FINDINGS: There is no evidence of acute intracranial hemorrhage, extra-axial collection, mass effect, midline shift, herniation or hydrocephalus. The ventricles, sulci and cisterns are age appropriate. The sánchez-white differentiation is intact. Patchy periventricular and subcortical white matter hypoattenuation is nonspecific but may be related to small vessel ischemic disease. Moderate generalized cerebral volume loss. The visualized paranasal sinuses and mastoid air cells are clear. The surrounding soft tissues and osseous structures are unremarkable. IMPRESSION: No acute intracranial abnormality.
[2025-03-01] MEDS: IOHEXOL 350 MG/ML 100ML IJ ONE (20:40)
--- NOTE | 2025-03-01 21:48 | DVH ---
INDICATION: TIA COMPARISON: None TECHNIQUE:CTA head and neck with intravenous contrast. 3D/MIP image postprocessing was performed and images were used for interpretation and reporting. Radiation Dose Information: CT Dose: CTDI volume is 54.34 mGy. Dose-length product is 3.16 mGy*cm FINDINGS: CTA neck: Normal 3-vessel origin left-sided aortic arch. Mild atherosclerotic calcification of the aortic arch and bilateral subclavian arteries without hemodynamically significant stenosis. Dxer-[id number]-xtsckgdp atherosclerotic calcification of the left carotid bulb, proximal ICA and proximal ECA without hemodynamically significant stenosis. Mild atherosclerotic calcification of the left common carotid artery. streak artifact from dental amalgam limiting evaluation of the mid to distal left c ervical ICA at the level of C1-C2. Otherwise, the left common carotid artery and left cervical ICA are unremarkable. Mild atherosclerotic calcification of the right common carotid artery with moderate to Heavy atherosclerotic calcification of the right carotid buld, and origin of the right ECA. Heavy atherosclerotic calcification of the Proximal right cervical ICA causing focal Near-complete occlusion with flow noted distally within the right cervical ICA. Mild atherosclerotic calcification at the origin of the left vertebral artery. Otherwise, the vertebral arteries are unremarkable and codominant. CTA head: Bilateral ACAS, anterior communicating artery and bilateral MCAs are unremarkable. Auye-jj-xselgnya atherosclerotic calcification of the right cavernous and supraclinoid ICA with moderate atherosclerotic calcification of the left cavernous and supraclinoid ICA. Otherwise, bilateral intracranial ICAs are unremarkable. origin of the right PIPE FITTER AMMONIA with hypoplasia of the right P1 segment. Otherwise, bilateral blanker press operator, bilateral superior cerebellar arteries and basilar artery are unremarkable. Short segmental moderate atherosclerotic calcification of the right intracranial vertebral artery with Tnzt-xu-dujvyrgh atherosclerotic calcification of the proximal left intracranial vertebral artery. The dural venous sinuses opacify normally. No abnormal intracranial enhancement. The thyroid gland is unremarkable. The lung apices are clear. Anterior cervical fixation hardware is noted. Polypoid mucoperiosteal thickening of the maxillary sinuses. IMPRESSION: Heavy atherosclerotic calcification of the Proximal right cervical ICA causing focal Near-complete occlusion with flow noted distally within the right cervical ICA. Moderate to Heavy atherosclerotic calcification of the right carotid buld, and origin of the right ECA. Moderate atherosclerotic calcification of the left cavernous and supraclinoid ICA. Short segmental moderate atherosclerotic calcification of the right intracranial vertebral artery with Gjbf-ma-ijehuddx atherosclerotic calcification of the proximal left intracranial vertebral artery.
[2025-03-02 00:52] VITALS: BP 159/88; PULSE 81; RESP 16; TEMP 97.9; O2SAT 95
== END 2025-03-02 01:08 | disposition short-term general hospital (02) ==
LOC: ER 18:52 → EDBD 18:52 → ER 03-02 01:08
DX: I63.9 Cerebral infarction, unspecified (principal); E11.9 Type 2 diabetes mellitus without complications; E78.5 Hyperlipidemia, unspecified; M19.90 Unspecified osteoarthritis, unspecified site; Z79.899 Other long term (current) drug therapy; Z88.6 Allergy status to analgesic agent
CPT/HCPCS: 36415; 70450; 70496; 70498; 71045; 80053; 82947; 83735; 83880; 84484; 85025; 85610; 85730; 93005; 99285; Q9967